=== PATIENT | male | born 1945 | race Caucasian/White ===

== ENCOUNTER 2017-06-03 13:05 | Day surgery (SDC) | payer BC ==
[~2017-06-03 13:05] MED LIST: Buffered Lidocaine 0.9% SYRIN* 5 ML/SYR SYRINGE INTRADERM ONE; Dexamethasone IV* 4 MG/ML 1 ML (4 MG) IV SLOW PU ONE; Famotidine IV* 10 MG/ML 2 ML (20 mg) IV ONE
[2017-06-03] MEDS ORDERED: Dexamethasone IV* 4 MG/ML 1 ML (4 MG) ONE (13:18)
[2017-06-03] MEDS ORDERED: Famotidine IV* 10 MG/ML 2 ML (20 mg) ONE (13:18)
[2017-06-03] MEDS ORDERED: ceFAZolin 2 GM PREMIX (*) 50 ML IVPB ONE (13:18)
[2017-06-03] MEDS ORDERED: Buffered Lidocaine 0.9% SYRIN* 5 ML/SYR SYRINGE ONE (13:18)
[2017-06-03] MEDS ORDERED: fentaNYL* 50 MCG/ML 2 ML VIAL (100 MCG VIAL) ONE ×2 (14:14→15:24)
[2017-06-03] MEDS ORDERED: Midazolam* 1 MG/ML 5 ML VIAL (5 MG) ONE (14:14)
[2017-06-03] MEDS ORDERED: Lidocaine 1% INJ* 10 MG/ML 30 ML SDV ONE (14:35)
[2017-06-03] MEDS ORDERED: Bupivacaine 0.5% SDV PF* 30 ML VIAL ONE (14:35)
[2017-06-03] MEDS ORDERED: Ondansetron INJ* 2 MG/ML VIAL IV PRN (14:45)
[2017-06-03] MEDS ORDERED: Propofol* 10 MG/ML 20 ML BTL IV PUSH ONE (14:49)
[2017-06-03] MEDS ORDERED: Ketorolac INJ* 30 MG/ML 1 ML VIAL ONE (14:49)
[2017-06-03] MEDS ORDERED: Ondansetron INJ* 2 MG/ML VIAL ONE (14:49)
[2017-06-03 16:34] VITALS: BP 135/87
[2017-06-03] MEDS ORDERED: oxyCODONE/Acetamin 5/325 MG* TAB PO PRN (16:42)
--- NOTE | 2017-06-03 16:49 | PN ---
Progress Note - Progress Note Date of Service: 06/03/17 Note: Brief Operative Note: Pre-op: Right inguinal Hernia Post-op: Same Procedure: Right inguinal hernia repair with mesh Surgeon: Dr. Harrison Plumber'S Assistant: Alejandra Esteban Anaesthesia: MAC and Local Fluids: LR 1000 cc EBL: Minimal Specimen: None Drains: None Catheter: None Findings: See dictated op note
--- NOTE | 2017-06-04 03:07 | OP ---
CC: Bunny Ortega MD* OPERATIVE REPORT: DATE OF OPERATION: 06/03/17 - SDS DATE OF : 43 SURGEON: Walter Harrison MD UI DEVELOPER DESIGNER: FLORIDA Granados ANESTHESIOLOGIST: Fabián Cho MD ANESTHESIA: Local MAC. PRE-OP DIAGNOSIS: Right inguinal hernia. POST-OP DIAGNOSIS: Direct right inguinal hernia. OPERATIVE PROCEDURE: Open repair of right inguinal hernia with mesh. ESTIMATED BLOOD LOSS: Minimal. IV FLUIDS: Crystalloids. SPECIMEN: None. DRAINS: None. COMPLICATIONS: None. COUNTS: Instrument, needle, and sponge counts correct. DESCRIPTION OF PROCEDURE: The patient was brought to the operative room and placed on the table supine. Sequential compression devices were placed on both lower extremities. Intravenous sedation was administered. The right groin was prepped and draped in the usual sterile fashion. Intravenous antibiotics were administered and time-out was performed. Local anesthetic was infiltrated as a field block in the right groin and then an oblique incision was created 5 cm long and subcutaneous tissues were divided with cautery. The external oblique aponeurosis was identified and infiltrated with additional anesthetic and then opened along the line of its fibers through the superficial ring. The aponeurosis was reflected back upon itself and the ilioinguinal nerve was identified, mobilized, and preserved laterally. The contents of the inguinal canal were isolated with the [place] drain at the level of the pubic tubercle. The inspection revealed a direct inguinal hernia and no evidence of indirect inguinal hernia. Cord structures were preserved laterally and repair was performed with the Ethicon Prolene Hernia System extended size mesh. Preperitoneal space was developed bluntly with a finger and a mesh placed deep to the ring of the defect. The onlay portion of the mesh was exteriorized and sutured to the pubic tubercle, the shelving edge of the inguinal ligament, and to the conjoint tendon with interrupted 2-0 Polysorb. Tails were fashioned on the mesh laterally to allow the egress of the spermatic cord and reconstituted laterally with a 2-0 Polysorb. Ilioinguinal nerve was returned to its anatomic position and the external oblique was run close with 2- 0 Polysorb. Agustina's was closed with 3-0 Polysorb in an interrupted fashion. Skin was closed with 4-0 Monocryl in subcuticular fashion. Steri-Strips applied with dressings. The patient tolerated the procedure well. He was transferred to recovery room in stable condition. [id number]/[facility] #: [id number] [place]
== END 2017-06-03 16:53 | disposition home or self-care (01) ==
LOC: OR 13:05
PROVIDERS: ATTEND Surgery
DX: K40.90 Unilateral inguinal hernia, without obstruction or gangrene, not specified as recurrent (principal); I10 Essential (primary) hypertension
CPT/HCPCS: C1781; J0690; J1100; J1885; J2001; J2250; J2405; J2704; J3010